=== PATIENT | female | born 1965 | race Hispanic/Latino ===

== ENCOUNTER 2023-07-21 08:59 | Emergency (ER) | payer BC ==
[~2023-07-21] VITALS: Ht 157.5 cm; Wt 74.8 kg
[2023-07-21 09:22] LABS: BASOPHILS # (AUTO) 0.03 K/uL (0.00-0.20); BASOPHILS % (AUTO) 0.5 % (0.0-5.0); EOSINOPHILS # (AUTO) 0.19 K/uL (0.00-0.70); EOSINOPHILS % (AUTO) 2.9 % (0.0-8.0); HEMATOCRIT 38.7 % (36-48); IMMATURE GRANULOCYTE ABSOLUTE 0.01 K/uL (0-1); LYMPHOCYTES # (AUTO) 2.9 K/uL (1.0-4.8); LYMPHOCYTES % (AUTO) 44.7 % (21.0-51.0); MEAN CORPUSCULAR HEMOGLOBIN 29.9 pg (27.0-33.0); MEAN CORPUSCULAR HGB CONC 33.3 g/dL (32.0-36.0); MEAN CORPUSCULAR VOLUME 89.6 fL (79-99); MONOCYTES # (AUTO) 0.5 K/uL (0.1-1.0); MONOCYTES % (AUTO) 7.4 % (3.0-13.0); NEUTROPHILS # (AUTO) 2.9 K/uL (1.8-7.7); NEUTROPHILS % (AUTO) 44.3 % (40.0-77.0); PLATELET COUNT (AUTO) 236 K/uL (130-400); RED BLOOD CELL COUNT(AUTO) 4.32 MIL/uL (4.00-5.50); RED CELL DISTRIBUTION WIDTH 13.8 % (11.0-15.5); WHITE BLOOD COUNT (AUTO) 6.5 K/uL (4.8-10.8)
[2023-07-21 09:33] LABS: CREATININE 0.9 mg/dL (0.5-1.5); POTASSIUM 3.6 mmol/L (3.5-5.1)
[2023-07-21 09:37] LABS: ALBUMIN 3.8 g/dL (3.5-5.0); BILIRUBIN,TOTAL 0.1 mg/dL (0.2-1.0); MAGNESIUM 1.8 mg/dL (1.80-2.40); TOTAL PROTEIN, SERUM 7.4 g/dL (6.0-8.3)
[2023-07-21 10:06] LABS: SARS-CoV-2, RNA, NAAT NEGATIVE SARS CoV-2 (NEGATIVE)
[2023-07-21 10:12] LABS: INFLUENZA TYPE A Negative For Type A (NEGATIVE); INFLUENZA TYPE B Negative For Type B (NEGATIVE)
[2023-07-21] MEDS ORDERED: PANTOPRAZOLE 40 MG/VIAL IVP ONE (10:30)
[2023-07-21] MEDS ORDERED: MECLIZINE HCL 25 MG TABLET PO ONE (10:30)
[2023-07-21] MEDS ORDERED: MAG/ALUM/SIMETH 30 ML UDCUP PO ONE (10:30)
[2023-07-21 13:15] VITALS: BP 151/74; PULSE 60; RESP 16; O2SAT 98
[2023-07-21] MEDS ORDERED: KETOROLAC 30MG VIAL (30MG/ML) IVP ONE (13:30)
[2023-07-21] MEDS ORDERED: ONDA4TAB10 PO (14:27)
[2023-07-21] MEDS ORDERED: MECL-302 PO (14:27)
[2023-07-21] MEDS ORDERED: HYOS-14 PO (14:27)
== END 2023-07-21 14:49 | disposition home or self-care (01) ==
LOC: EDH 08:59
DX: R07.89 Other chest pain (principal); R42 Dizziness and giddiness; H61.23 Impacted cerumen, bilateral; R11.0 Nausea; I10 Essential (primary) hypertension; E78.00 Pure hypercholesterolemia, unspecified; E11.9 Type 2 diabetes mellitus without complications; Z90.710 Acquired absence of both cervix and uterus; Z20.822 Contact with and (suspected) exposure to COVID-19
CPT/HCPCS: 99284; 96374; 70450; 71045; 87635; 96375; 83735; 84484 ×2; 80053; 83690; 85025; 87804 ×2; 36415; 93005; C9803; J1885; C9113

== ENCOUNTER 2023-10-16 20:32 | Emergency (ER) | payer BC ==
[~2023-10-16] VITALS: Ht 165.1 cm; Wt 73.5 kg
[~2023-10-16 20:32] MED LIST: HYOS-14 PO; MECL-160 PO; ONDA4TAB10 PO
[2023-10-17 00:01] VITALS: BP 141/73; PULSE 61; RESP 16; O2SAT 100
== END 2023-10-17 00:02 | disposition home or self-care (01) ==
LOC: EDH 20:32
DX: S61.232A Puncture wound without foreign body of right middle finger without damage to nail, initial encounter (principal); I10 Essential (primary) hypertension; E78.00 Pure hypercholesterolemia, unspecified; E11.9 Type 2 diabetes mellitus without complications; Z90.710 Acquired absence of both cervix and uterus; W26.0XXA Contact with knife, initial encounter; Y93.89 Activity, other specified; Y92.89 Other specified places as the place of occurrence of the external cause; Y99.8 Other external cause status
CPT/HCPCS: 73140

== ENCOUNTER 2024-03-17 09:12 | Emergency (ER) | payer BC ==
[~2024-03-17] VITALS: Ht 162.6 cm; Wt 73.5 kg
[~2024-03-17 09:12] MED LIST changes: -MECL-160 PO; +MECL-302 PO; +ONDA-243 PO; -ONDA4TAB10 PO
[2024-03-17 09:43] LABS: HEMATOCRIT 40.1 % (36-48); MEAN CORPUSCULAR HEMOGLOBIN 28.6 pg (27.0-33.0); MEAN CORPUSCULAR HGB CONC 32.9 g/dL (32.0-36.0); MEAN CORPUSCULAR VOLUME 86.8 fL (79-99); RED BLOOD CELL COUNT(AUTO) 4.62 MIL/uL (4.00-5.50); RED CELL DISTRIBUTION WIDTH 14.1 % (11.0-15.5); WHITE BLOOD COUNT (AUTO) 6.1 K/uL (4.8-10.8)
[2024-03-17 09:58] LABS: CREATININE 0.9 mg/dL (0.5-1.0); POTASSIUM 4.6 mmol/L (3.5-5.1)
[2024-03-17 10:13] LABS: APPEARANCE,URINE CLEAR (CLEAR); BILIRUBIN,URINE NEGATIVE (NEGATIVE); COLOR,URINE YELLOW (YELLOW); GLUCOSE, URINE (UA) NEGATIVE (NEGATIVE); KETONES,URINE NEGATIVE (NEGATIVE); LEUKOCYTE ESTERASE ,URINE NEGATIVE Leu/uL (NEGATIVE); NITRATE,URINE NEGATIVE (NEGATIVE); OCCULT BLOOD,URINE NEGATIVE (NEGATIVE); PH,URINE 5.5 (5.0-8.0); PROTEIN,URINE 20 mg/dL (NEGATIVE); UROBILINOGEN,URINE 0.2 mg/dL (0.2-1.0)
[2024-03-17] MEDS: mecliZINE HCL 25 MG TABLET PO ONE (10:14)
[2024-03-17] MEDS: LACTATED RINGERS 1000ML 1,000 ML IV ONE (10:15)
[2024-03-17 10:21] LABS: ADD UA MICROSCOPIC YES
[2024-03-17 10:29] LABS: BACTERIA,URINE RARE /HPF (None Seen); MUCUS,URINE RARE LPF (None Seen); SQUAMOUS EPITHELIAL CELL,UR RARE /HPF (0-2); WBC,URINE 0-1 /HPF (0-1)
[2024-03-17] MEDS ORDERED: MECL-302 PO (11:58)
[2024-03-17 12:34] VITALS: BP 172/86; PULSE 65; RESP 18; O2SAT 99
== END 2024-03-17 12:36 | disposition home or self-care (01) ==
LOC: EDH 09:12
DX: H81.10 Benign paroxysmal vertigo, unspecified ear (principal); H81.09 Meniere's disease, unspecified ear; H83.09 Labyrinthitis, unspecified ear; E11.9 Type 2 diabetes mellitus without complications; E78.00 Pure hypercholesterolemia, unspecified; I10 Essential (primary) hypertension; Z90.710 Acquired absence of both cervix and uterus
CPT/HCPCS: 99283; 96360; 96361; 80048; 85027; 81001; 36415; J7120

== ENCOUNTER 2024-08-30 11:24 | Emergency (ER) | payer BC ==
[~2024-08-30] VITALS: Ht 162.6 cm; Wt 74.4 kg
--- NOTE | 2024-08-30 11:34 | ERN ---
ED Note History of Present Illness Stated Complaint: WORK INJURY Chief Complaint: Knee Injury/Swelling Time Seen by MD: 11:29 Dictation: 58-YEAR-OLD FEMALE COMING IN TODAY VIA EMS WITH COMPLAINTS OF A SLIP FALL ON A WET FLOOR AT WORK. SHE LANDED ON HER LEFT KNEE. NO SHORTENING OR ROTATION OF LEG. NO HIP PAIN NO PELVIC PAIN. Allergies: Coded Allergies: No Known Drug Allergies (Unverified Allergy, Unknown, 07/21/23) Home Meds Active Scripts Ibuprofen (Ibuprofen 800 mg Tab) 800 Mg Tab, 800 MG PO Q8H PRN for fever or pain, #30 TAB 0 Refills Prov:HAVEN ORDONEZ NP 08/30/24 Meclizine HCl (Meclizine HCl) 25 Mg Tablet, 25 MG PO Q6HPRN for Dzziness, #30 TAB Prov:ISAIAS HDZ MD 03/17/24 Hyoscyamine Sulfate (Hyoscyamine Sulfate) 0.125 Mg Tab.rapdis, 0.125 MG PO TID PRN for PAIN, #15 TAB 0 Refills Prov:JUSTYN OLIVEIRA MD 07/21/23 Meclizine HCl (Meclizine HCl) 25 Mg Tablet, 25 MG PO TID PRN for DIZZINESS, #30 TAB 0 Refills Prov:JUSTYN OLIVEIRA MD 07/21/23 Ondansetron (Ondansetron Odt) 4 Mg Tab.rapdis, 4 MG PO TID PRN for NAUSEA, #15 TAB 0 Refills Prov:JUSTYN OLIVEIRA MD 07/21/23 Past Medical History Past Medical History: Diabetes-Type II, High Cholesterol, Hypertension Surgical History: Hysterectomy Family History: Negative Social History: Negative, Lives with family History: Not Applicable RN Note Reviewed/Agreed w/PFSH: Yes Review of System Dictation CONSTITUTIONAL: NEGATIVE EXCEPT FOR HPI HEAD/FACE: NEGATIVE EXCEPT FOR HPI EENT: NEGATIVE EXCEPT FOR HPI RESPIRATORY: NEGATIVE EXCEPT FOR HPI GASTROINTESTINAL/ABDOMINAL: NEGATIVE EXCEPT FOR HPI GENITOURINARY: NEGATIVE EXCEPT FOR HPI MUSCULOSKELETAL: NEGATIVE EXCEPT FOR HPI LEFT ANTERIOR KNEE PAIN INTEGUMENTARY: NEGATIVE EXCEPT FOR HPI NEUROLOGICAL/PSYCH: NEGATIVE EXCEPT FOR HPI HEMATOLOGIC/LYMPHATIC: NEGATIVE EXCEPT FOR HPI ALL SYSTEMS NEGATIVE, EXCEPT NOTED ABOVE. 13 POINT REVIEW OF SYSTEMS ASSESSED AND ALL NEGATIVE EXCEPT FOR ABOVE. Initial Vital Sign VS Vital Signs Date Time Temp Pulse Resp B/P (MAP) Pulse Ox O2 Delivery O2 Flow Rate FiO2 08/30/24 11:29 98.1 65 16 150/97 97 Room Air 0 08/30/24 14:06 21 Physical Exam Dictation VITAL SIGNS REVIEWED GENERAL APPEARANCE: ALERT, ORIENTED X 3, MODERATE ACUTE DISTRESS, WELL DEVELOPED, NOURISHED. HEAD AND FACE: NON-TRAUMATIC. EYES: PERRL, PINK CONJUNCTIVAS, EYELID NO TRAUMA, ANTERIOR CHAMBER WITH ARCUS SENILIS. EARS: PINNAS INTACT AND NO SIGNS OF TRAUMA OR ERYTHEMA EAR CANALS CLEAR AND NO DISCHARGE TM NO ERYTHEMA NOSE: NO DISCHARGE, NO BLEEDING. OROPHARYNX: MOUTH NORMAL, TONGUE PINK, PHARYNX CLEAR,NO ERYTHEMA, TONSILS NO EXUDATES, NO ABSCESSES NOTED, MUCOUS MEMBRANE MOIST NECK: SUPPLE, NON-TENDER, NO THYROMEGALY, NO MASSES, NO JVD, NO BRUITS BREAST:DEFERRED CHEST:NO TENDERNESS, NO CREPITUS, NO PARADOXICAL MOVEMENT, NO RETRACTIONS LUNGS:CLEAR, WELL-VENTILATED, SYMMETRIC, NO RALES, NO WHEEZING, NO RHONCHI, NO STRIDOR, GOOD BREATH SOUNDS BILATERALLY HEART: REGULAR RATE, REGULAR RHYTHM, NO MURMUR, NO GALLOPS VASCULAR: NO PERIPHERAL EDEMA, ABDOMEN: SOFT, POSITIVE BOWEL SOUNDS, NONDISTENDED, NO GUARDING, NONTENDER, NO REBOUND, NO MASSES NO HEPATOMEGALY, NO SPLENOMEGALY, NO MATAMOROS'S SIGN, NO HERNIAS. RECTAL: DEFERRED GENITAL: DEFERRED NEUROLOGICAL: NORMAL SPEECH, MOTOR FUNCTION INTACT, SENSORY FUNCTION INTACT MUSCULOSKELETAL: NECK NONTENDER, FULL RANGE OF MOTION, BACK NONTENDER, FULL RANGE OF MOTION, EXTREMITIES: DIFFUSE LEFT KNEE ANTERIOR TENDERNESS. NO EFFUSION. DISCHARGED DECREASED RANGE OF MOTION SECONDARY TO PAIN SKIN: COLOR PINK, DRY, NO TURGOR, NO RASH, NO LACERATIONS, NO ABRASIONS, NO CONTUSIONS. LYMPHATIC: DEFERRED Results (Laboratory/Radiology) Laboratory/Radiology LEFT KNEE X-RAY NEGATIVE Labs Reviewed?: Yes ED Course ED Course Orders Procedure Category Date Status Time Knee 3vws Lt RAD 08/30/24 Resulted 11:31 Ketorolac PHA 08/30/24 Complete Tromethamine 30mg/Ml 12:00 Current Medications Medications (Trade) Dose Ordered Sig/Bethany Route PRN Reason Start Time Stop Time Status Last Admin Dose Admin Ketorolac Tromethamine (toRADol) 30 mg ONCE ONCE IVP 08/30/24 12:00 08/30/24 12:01 DC 08/30/24 14:39 Vital Signs Date Time Temp Pulse Resp B/P (MAP) Pulse Ox O2 Delivery O2 Flow Rate FiO2 08/30/24 14:53 98.1 62 16 138/84 97 Room Air* 0 21 08/30/24 14:06 98.1 65 16 150/97 98 Room Air* 0 21 08/30/24 11:29 98.1 65 16 150/97 97 Room Air 0 4 10 PATIENT WILL BE DISCHARGED HOME WITH LEFT KNEE CONTUSION, INSTRUCTIONS FOR RICE, IBUPROFEN AND FOLLOW UP WITH HER DOCTOR. Medical Decision Making MDM MEDICAL DISCHARGE MAKING BASED ON X-RAY OF LEFT KNEE STATUS POST FALL X-RAY NEGATIVE PATIENT DISCHARGED HOME WITH LEFT KNEE CONTUSION, PRESCRIBED IBUPROFEN 800 MG Q.6 TO 8 HOURS P.R.N. ACTIVITY TOLERATED AND SEE HER PRIMARY CARE DOCTOR USE RICE DX & DISP Disposition: Discharge Departure Impression: Primary Impression: Contusion of left knee, initial encounter Additional Impression: Fall Condition: Stable Scripts Ibuprofen (Ibuprofen 800 mg Tab) 800 Mg Tab 800 MG PO Q8H PRN for fever or pain, #30 TAB 0 Refills Prov: JANAYJORGEHAVEN SILVERWARE ETCHER 08/30/24 Additional Instructions: FOLLOW-UP WITH PRIMARY CARE PROVIDER IN 1 TO 2 DAYS. TAKE MEDICATIONS DIRECTED HERE IN THE EMERGENCY ROOM. OKAY TO CONTINUE HOME MEDICATIONS UNLESS OTHERWISE DISCUSSED DURING YOUR VISIT IN THE EMERGENCY ROOM TODAY. RETURN TO YOUR NEAREST EMERGENCY ROOM IF SYMPTOMS WORSEN OR IF THERE IS NO IMPROVEMENT. CALL 911 IF YOU NEED IMMEDIATE ASSISTANCE. TAKE TYLENOL OR MOTRIN [id number] NEEDED AND IF NO CONTRAINDICATIONS ARE PRESENT. INCREASE ORAL HYDRATION. A WOUND CULTURE OR URINE CULTURE WAS ORDERED HERE IN THE EMERGENCY ROOM DEPARTMENT PLEASE FOLLOW-UP WITH PRIMARY CARE PROVIDER AND ADVISE THEM TO GET REPEAT PORTS FROM OUR FACILITY. IF YOU HAD ANY NIDA WRAP/SPLINTS THAT WERE APPLIED HERE, PLEASE DO NOT REMOVE THEM UNTIL YOU SEE YOUR PRIMARY CARE OR SPECIALTY. COOL COMPRESSES TO KNEE THREE TO 4 TIMES A DAY. TAKE IBUPROFEN DIRECTED WITH FOOD FOR ANY PAIN. ACTIVITY TOLERATED AND SEE YOUR PRIMARY CARE DOCTOR FOR FOLLOW UP Referrals: TANG WEST MD (PCP) Time of Disposition: 14:11 I have reviewed the case, and I agree with, Diagnosis and Plan I performed the substantive portion of the visit. I have reviewed and personally made and approve the management plan that is documented in the notes by myself or the [facility]. I acknowledge full responsibility for the patient's management plan. HAVEN ORDONEZ NP Aug 30, 2024 11:34 MIKALA DILLON MD Aug 30, 2024 17:08
[2024-08-30] MEDS ORDERED: IBUP-2077 PO (14:11)
[2024-08-30] MEDS: ketOROlac 30MG VIAL (30MG/ML) IVP ONE (14:39)
[2024-08-30 14:53] VITALS: BP 138/84; PULSE 62; RESP 16; TEMP 98.1; O2SAT 97
--- NOTE | 2024-08-30 15:28 | HMCIMG ---
Exam Type: KNEE 3VWS LT Clinical Information: LEFT KNEE PAIN SWELLING STATUS POST SLIP FALL Comparison: None Findings: There is superior patellar osteophytosis. No other degenerative changes are seen. No acute fractures are seen. The soft tissues appear normal. Impression: Patellar osteophyte.
== END 2024-08-30 14:55 | disposition home or self-care (01) ==
LOC: EDH 11:24
DX: S80.02XA Contusion of left knee, initial encounter (principal); E11.9 Type 2 diabetes mellitus without complications; E78.00 Pure hypercholesterolemia, unspecified; I10 Essential (primary) hypertension; Z90.710 Acquired absence of both cervix and uterus; Z79.899 Other long term (current) drug therapy; W18.39XA Other fall on same level, initial encounter; Y93.89 Activity, other specified; Y92.89 Other specified places as the place of occurrence of the external cause; Y99.8 Other external cause status
CPT/HCPCS: 99284; 96374; 73562; J1885